=== PATIENT | female | born 1980 | race African-American/Black ===

== ENCOUNTER 2018-01-21 13:59 | Observation (INO) | payer OTHER ==
--- NOTE | 2018-01-21 14:20 | PDOC ---
History of Present Illness - General Chief Complaint: Injury Stated Complaint: INJURY Time Seen by Provider: 01/21/18 14:07 - History of Present Illness Initial Comments: 01/21/18 14:17 Ms. Spence is a 37 yo female w/ no pmh BIBA after a "wet ceiling tile" fell on her head. She reports that she was sitting watching tv when a wet tile fell from the ceiling and struck her. She reports that her head hurts where she was struck. The patient denies chest pain, shortness of breath, and dizziness. Denies fever , chills, nausea, vomit, diarrhea and constipation. Denies dysuria, frequency, urgency and hematuria. Allergies: NKDA Past History - Past Medical History Allergies/Adverse Reactions: Allergies Allergy/AdvReac Type Severity Reaction Status Date / Time No Known Drug Allergies Allergy Verified 10/29/16 11:30 Home Medications: Ambulatory Orders NK [No Known Home Medication] 01/21/18 Anemia: No Asthma: No Cancer: No Cardiac Disorders: No CVA: No COPD: No CHF: No Dementia: No Diabetes: No GI Disorders: Yes (hernia) Disorders: No HTN: No Hypercholesterolemia: No Liver Disease: No Seizures: No Thyroid Disease: No - Surgical History Abdominal Surgery: No Appendectomy: No Cardiac Surgery: No Cholecystectomy: No Lung Surgery: No Neurologic Surgery: No Orthopedic Surgery: Yes (ARTHOSCOPY LEFT KNEE 2006) - Immunization History Immunization Up to Date: Yes - Suicide/Smoking/Psychosocial Hx Smoking History: Former smoker Have you smoked in the past 12 months: No Number of Cigarettes Smoked Daily: 0.5 'Breaking Loose' booklet given: 06/25/15 Hx Alcohol Use: Yes (occasional) Drug/Substance Use Hx: No Substance Use Type: Alcohol Hx Substance Use Treatment: No Review of Systems - Review of Systems Comments:: 01/21/18 14:20 GENERAL/CONSTITUTIONAL: No fever or chills. No weakness. HEAD, EYES, EARS, NOSE AND THROAT: No change in vision. No ear pain or discharge. No sore throat. CARDIOVASCULAR: No chest pain or shortness of breath RESPIRATORY: No cough, wheezing, or hemoptysis. GASTROINTESTINAL: No nausea, vomiting, diarrhea or constipation. GENITOURINARY: No dysuria, frequency, or change in urination. MUSCULOSKELETAL: No joint or muscle swelling or pain. No neck or back pain. SKIN: No rash NEUROLOGIC: +Headache at impact site. No vertigo, loss of consciousness, or change in strength/sensation. ENDOCRINE: No increased thirst. No abnormal weight change HEMATOLOGIC/LYMPHATIC: No anemia, easy bleeding, or history of blood clots. ALLERGIC/IMMUNOLOGIC: No hives or skin allergy. *Physical Exam - Physical Exam Comments: 01/21/18 14:20 GENERAL: Awake, alert, and fully oriented, in no acute distress HEAD: No signs of trauma, normocephalic, atraumatic EYES: PERRLA, EOMI, sclera anicteric, conjunctiva clear ENT: Auricles normal inspection, hearing grossly normal, nares patent, oropharynx clear without exudates. Moist mucosa NECK: Normal ROM, supple, no lymphadenopathy, JVD, or masses LUNGS: No distress, speaks full sentences, clear to auscultation bilaterally HEART: Regular rate and rhythm, normal S1 and S2, no murmurs, rubs or gallops, peripheral pulses normal and equal bilaterally. ABDOMEN: Soft, nontender, normoactive bowel sounds. No guarding, no rebound. No masses EXTREMITIES: Normal inspection, Normal range of motion, no edema. No clubbing or cyanosis. NEUROLOGICAL: +Patient reporting significant pain to palpation of cervical, lumbar, and spinal areas. Cranial nerves II through XII grossly intact. Normal speech, normal gait, no focal sensorimotor deficits SKIN: Warm, Dry, normal turgor, no rashes or lesions noted. ED Treatment Course - LABORATORY CBC & Chemistry Diagram: 01/21/18 14:21 01/21/18 14:21 - RADIOLOGY Radiology Studies Ordered: Category Date Time Status CERVICAL SPINE CT W/O CONTR [CT] Stat CT Scan 01/21/18 14:[address] WITHOUT CONTRAST [CT] Stat CT Scan 01/21/18 14:12 Ordered Medical Decision Making - Medical Decision Making 01/21/18 14:40 Ms. Spence is a 37 yo female w/ no pmh who presents after a ceiling tile fell on her. Patient reporting significant pain with palpation of spine in multiple locations on trauma evaluation. Head and C/T/L spine CT's ordered for evaluation. Morphine 2mg given for pain control. 01/21/18 16:17 Patient Head, T-spine, L-spine CT's negative for acute process. Patient still reporting significant pain. Morphine 4mg given for further pain control. 01/21/18 17:05 CT C-spine negative for acute process. Paging inpatient for admission. 01/21/18 17:09 Patient admitted for observation. 01/21/18 17:20 Neurology consulted for further inpatient evaluation. 01/21/18 18:[address] Khan who will see patient inpatient for further evaluation. *DC/Admit/Observation/Transfer Diagnosis at time of Disposition: Head trauma Qualifiers: Encounter type: initial encounter Qualified Code(s): S09.90XA - Unspecified injury of head, initial encounter - Discharge Dispostion Admit: Yes - Referrals Referrals: Sri Waldrop NP [Primary Care Provider] - - Patient Instructions - Post Discharge Activity
[2018-01-21] MEDS ORDERED: morphine CARPU-JECT 2 MG/1 ML DISP.SYRIN IVPUSH ONE (14:32)
[2018-01-21] MEDS ORDERED: morphine SULFATE 4 MG/ML VIAL ONE ×2 (14:33→16:16)
[2018-01-21 14:47] LABS: BASO % 0.4 % (0-2.0); EOS % 0.8 % (0-4.5); HEMATOCRIT 40.3 % (32.4-45.2); HEMOGLOBIN 13.3 GM/dL (10.7-15.3); LYMPH % 46.8 % (8-40); MCH 30.8 pg (25.7-33.7); MCHC 33.1 g/dl (32.0-36.0); MEAN PLT VOLUME 9.7 fl (7.5-11.1); MONO % 10.6 % (3.8-10.2); NEUT % 41.4 % (42.8-82.8); PLATELET COUNT 149 K/MM3 (134-434); RBC 4.34 M/mm3 (3.60-5.2); RDW 14.2 % (11.6-15.6); WHITE BLOOD COUNT 5.6 K/mm3 (4.0-10.0)
[2018-01-21 15:11] LABS: ALBUMIN 3.8 g/dl (3.4-5.0); ALK PHOS 92 U/L (45-117); ANION GAP 4 (8-16); BILIRUBIN,TOTAL 0.5 mg/dL (0.2-1.0); BLOOD UREA NITROGEN 11 mg/dL (7-18); CALCIUM 8.6 mg/dL (8.5-10.1); CHLORIDE 109 mmol/L (98-107); CO2 27 mmol/L (21-32); CREATININE 0.8 mg/dL (0.55-1.02); GLUCOSE,RANDOM 89 mg/dL (74-106); POTASSIUM 4.6 mmol/L (3.5-5.1); SGOT/AST 19 U/L (15-37); SGPT/ALT 18 U/L (12-78); SODIUM 140 mmol/L (136-145); TOT PROT 7.5 g/dl (6.4-8.2)
--- NOTE | 2018-01-21 15:37 | PDOC ---
Attending Attestation - Resident Resident Name: Edilberto German - ED Attending Attestation I have performed the following: I have examined & evaluated the patient, The case was reviewed & discussed with the resident, I agree w/resident's findings & plan, Exceptions are as noted - HPI HPI: 01/21/18 15:34 37 yo F c/ hx of obesity p/w trauma. The patient was seen immediately by the ED team, including me and Dr. German (resident). 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 With all of the rain, the above tiles in her ceiling were wet. It had collapsed on the patient and landed on the back of her head and neck. The patient is complaining of thoracic and lumbar pain, in addition to headache. Denies LOC. Does report feeling slow and unwell. Denies chest pain. Does not take anticoagulants. A: speaking without obstruction B: breath sounds equal and clear C: 2+ radial pulse D: CN II-XII intact. Moving all extremities with equal strength. E: No lacerations, tears or abrasions - Physicial Exam PE: 01/21/18 15:37 GENERAL: Awake, alert, and fully oriented, but appears lethargic, and answers questions slowly HEAD: No signs of trauma EYES: PERRLA, EOMI, sclera anicteric, conjunctiva clear ENT: Auricles normal inspection, hearing grossly normal, nares patent. C-spine with no stepoffs. Subjective tenderness to palpation. NECK: Normal ROM, supple LUNGS: Breath sounds equal, clear to auscultation bilaterally. No wheezes, and no crackles HEART: Regular rate and rhythm, normal S1 and S2, no murmurs, rubs or gallops ABDOMEN: Soft, nontender. No guarding, no rebound. No masses BACK: TTP thoracic and lumbar spine. No step offs noted. EXTREMITIES: Normal range of motion, no edema. No clubbing or cyanosis. No cords, erythema, or tenderness NEUROLOGICAL: Cranial nerves II through XII intact. Slow speech, SKIN: Warm, Dry, normal turgor, no rashes or lesions noted. - Medical Decision Making 01/21/18 15:39 Vital Signs Temp Pulse Resp BP Pulse Ox 98.3 F 71 18 156/94 100 01/21/18 14:19 01/21/18 14:19 01/21/18 14:19 01/21/18 14:19 01/21/18 14:19 Pt is a trauma patient. Must rule out intracranial hemorrhage, spinal fracture (c-spine, thoracic, lumbar) Pain control. Head CT, spine CTs labs
[2018-01-21] MEDS ORDERED: morphine CARPU-JECT 4 MG/1 ML DISP.SYRIN IVPUSH ONE (16:13)
--- NOTE | 2018-01-21 20:08 | CON.NEURO ---
Consult Consult Specialty:: neurology Referred by:: ER Reason for Consultation:: Head/Neck trauma - History of Present Illness Chief Complaint: HIt on head by ceiling tile History of Present Illness: Patient had come home from work, and was sitting and watching television in her chair. It was raining and the ceiling tiles were getting soaking wet. As she bent over to grab something, some tiles fell on her hitting her in the back of her head neck and shoulders. She did not lose consciousness but was briefly dazed. SHe immediately tried to call her super, couldn't reach him, then thought to call her mother but realized that she wouldn't be able to reach her either and so decided to call 911, the point being that she was thinking clearly and strategically throughout. She had no weakness or numbness, but her head and neck ached a bit. - History Source History Provided By: Patient, Medical Record Limitations to Obtaining History: No Limitations - Past Medical History ...LMP: 06/05/15 - Alcohol/Substance Use Hx Alcohol Use: Yes (occasional) - Smoking History Smoking history: Former smoker Have you smoked in the past 12 months: No Aproximately how many cigarettes per day: 0.5 Home Medications - Allergies Allergies/Adverse Reactions: Allergies Allergy/AdvReac Type Severity Reaction Status Date / Time No Known Drug Allergies Allergy Verified 10/29/16 11:30 - Home Medications Home Medications: Ambulatory Orders NK [No Known Home Medication] 01/21/18 Physical Exam-Neuro Vital Signs: Vital Signs Temperature 98.3 F 01/21/18 14:19 Pulse Rate 60 01/21/18 18:53 Respiratory Rate 18 01/21/18 18:53 Blood Pressure 130/82 01/21/18 18:53 O2 Sat by Pulse Oximetry (%) 100 01/21/18 18:53 Constitutional: Yes: Well Nourished Neck: Yes: Supple Labs: CBC, BMP 01/21/18 14:21 01/21/18 14:21 - Neuro Exam Level Of Consciousness: Yes: Alert, Oriented to Person, Oriented to Place, Oriented to Time Eyes: Yes: MARY Speech: WNL Cranial Nerves II-XII Intact: Yes DTR's: 2+ Left Bicep, 2+ Right Bicep, 2+ Left Tricep, 2+ Right Tricep, 2+ Left Brachioradialis, 2+ Right Brachioradialis, 2+ Left Achilles, 2+ Right Achilles Babinski: Absent Response to light touch: Normal Motor Strength: 5/5: Left Arm, Right Arm, Left Leg, Right Leg Gait: Deferred Imaging - Results Cat Scan: Report Reviewed, Image Reviewed (ct head and c spine negative, thought there is some straightening of the normal curvature of the c spine) Problem List - Problems (1) Concussion Code(s): S06.0X9A - CONCUSSION W LOSS OF CONSCIOUSNESS OF UNSP DURATION, INIT Qualifiers: Qualified Code(s): S06.0X0A - Concussion without loss of consciousness, initial encounter Assessment/Plan patient briefly dazed though quickly got her wits about her. If not feeling better tomorrow would advise on modified activity until she is feeling better.
[2018-01-22 00:27] VITALS: BMI 39.5
[2018-01-22] MEDS: ACETAMINOPHEN 325 MG TABLET (FP) PO PRN ×2 (01:16→10:03)
--- NOTE | 2018-01-22 02:18 | HOSP ---
Subjective - Review of Symptoms Events since last encounter: Hospitalist Encounter Called by RN to evaluate a patient of Dr. Gaspar'radha for bradycardia RN checked pulse 52-55 Subjective: Arrived to bedside, patient is asleep but arousable reports WATERMAN is improving since being medicated. Denies lightheadedness and dizziness at present. See PE 37 y/o woman PMHx of Bronchitis. Placed in Observation for Head Injury r/o Concussion Plan: EKG stat Physical Examination Vital Signs: Vital Signs Temperature 98.2 F 01/22/18 00:21 Pulse Rate 55 L 01/22/18 01:19 Respiratory Rate 18 01/22/18 01:19 Blood Pressure 121/65 01/22/18 00:21 O2 Sat by Pulse Oximetry (%) 95 01/21/18 23:47 Constitutional: Yes: Well Nourished, No Distress, Calm Eyes: Yes: WNL, Conjunctiva Clear, EOM Intact, PERRL HENT: Yes: WNL, Atraumatic, Normocephalic Neck: Yes: WNL, Supple, Trachea Midline Cardiovascular: Yes: Bradycardia, S1, S2 Respiratory: Yes: WNL, Regular, CTA Bilaterally Gastrointestinal: Yes: WNL, Normal Bowel Sounds, Soft, Abdomen, Obese Peripheral Pulses WNL: Yes Neurological: Yes: WNL, Alert, Oriented, Cran Nerves II-XII Intact ...Motor Strength: WNL Psychiatric: Yes: WNL, Alert, Oriented Labs: CBC, BMP 01/21/18 14:21 01/21/18 14:21 Hospitalist Encounter Outcome: EKG reviewed- sinus bradycardia with sinus arrhythmia. 48bpm, WI 168, QT/QTc 462 /412 Recommendations/Interventions: Suggest transfer to Obs Tele when bed available for closer monitoring Recommend Cardiac consult
[2018-01-22] MEDS ORDERED: PT OWN MED DRAWER 7, Y5N ONE (09:46)
--- NOTE | 2018-01-22 09:54 | PN ---
Progress Note, Physician Chief Complaint: head and neck trauma History of Present Illness: Patient had come home from work, and was sitting and watching television in her chair. It was raining and the ceiling tiles were getting soaking wet. As she bent over to grab something, some tiles fell on her hitting her in the back of her head neck and shoulders. She did not lose consciousness but was briefly dazed. SHe immediately tried to call her super, couldn't reach him, then thought to call her mother but realized that she wouldn't be able to reach her either and so decided to call 911, the point being that she was thinking clearly and strategically throughout. She had no weakness or numbness, but her head and neck ached a bit. This am complains of headache since last night. Asked me to close shade as I came in. Noise also bothering her. No nausea or vomiting. She had one prior episode of head trauma at work in August 2017 resulting in ear surgery and briefly had migrainous headaches after that but they disappeared and lately she hadn't had headaches until last night. She is now also noted to be bradycardic. - Current Medication List Current Medications: Active Medications Acetaminophen (Tylenol -) 650 mg PO Q6H PRN PRN Reason: PAIN LEVEL 1 - 3 Last Admin: 01/22/18 01:16 Dose: 650 mg Morphine Sulfate (Morphine Sulfate) 2 mg IVPUSH Q4H PRN PRN Reason: PAIN LEVEL 4 - 6 - Objective Vital Signs: Vital Signs Temperature 97.9 F 01/22/18 06:40 Pulse Rate 52 L 01/22/18 06:40 Respiratory Rate 18 01/22/18 06:40 Blood Pressure 128/62 01/22/18 06:40 O2 Sat by Pulse Oximetry (%) 95 01/21/18 23:47 Neurological: Yes: Alert, Oriented, Cran Nerves II-XII Intact, Other (Motor 5/5 , DTR's 2/4 with flexor plantar reflexes. No sensory loss.) Labs: CBC, BMP 01/21/18 14:21 01/21/18 14:21 Problem List - Problems (1) Concussion Code(s): S06.0X9A - CONCUSSION W LOSS OF CONSCIOUSNESS OF UNSP DURATION, INIT Qualifiers: Qualified Code(s): S06.0X0A - Concussion without loss of consciousness, initial encounter (2) Migraine Code(s): G43.909 - MIGRAINE, UNSP, NOT INTRACTABLE, WITHOUT STATUS MIGRAINOSUS Qualifiers: Status migrainosus presence: without status migrainosus Intractability: not intractable Assessment/Plan patient briefly dazed though quickly got her wits about her. advised limiting though not avoiding electronics, reading etc. Now with post- traumatic migraine. Will most likely benefit from migraine prophylaxis, but before chosing agent, I would like to see what is going on with bradycardia. I gave her my card for f/u.
[2018-01-22] MEDS: morphine SULFATE 4 MG/ML VIAL IVPUSH PRN ×2 (10:59→21:39)
--- NOTE | 2018-01-22 12:39 | HP ---
Admitting History and Physical - Primary Care Physician PCP: Ilana Gaspar - Admission Chief Complaint: tile fell on head and neck - Past Medical History ...LMP: 06/05/15 - Smoking History Smoking history: Former smoker Have you smoked in the past 12 months: No Aproximately how many cigarettes per day: 0.5 - Alcohol/Substance Use Hx Alcohol Use: Yes (occasional) Home Medications - Allergies Allergies/Adverse Reactions: Allergies Allergy/AdvReac Type Severity Reaction Status Date / Time No Known Drug Allergies Allergy Verified 10/29/16 11:30 - Home Medications Home Medications: Ambulatory Orders NK [No Known Home Medication] 01/21/18 Physical Examination Vital Signs: Vital Signs Temperature 98.0 F 01/22/18 09:00 Pulse Rate 54 L 01/22/18 09:00 Respiratory Rate 18 01/22/18 09:00 Blood Pressure 147/81 01/22/18 09:00 O2 Sat by Pulse Oximetry (%) 99 01/22/18 09:00 Labs: CBC, BMP 01/21/18 14:21 01/21/18 14:21 Imaging - Results Cat Scan: Report Reviewed Problem List - Problems (1) Concussion Assessment/Plan: will keep her for observation for any change in mental status if stable can be dc later today neuro onboard Code(s): S06.0X9A - CONCUSSION W LOSS OF CONSCIOUSNESS OF UNSP DURATION, INIT (2) Head trauma Code(s): S09.90XA - UNSPECIFIED INJURY OF HEAD, INITIAL ENCOUNTER Qualifiers: Encounter type: initial encounter Qualified Code(s): S09.90XA - Unspecified injury of head, initial encounter (3) Bradycardia Assessment/Plan: monitor if needed will get cardiology invvolved Code(s): R00.1 - BRADYCARDIA, UNSPECIFIED (4) Migraine Assessment/Plan: could be post traumatic prn pain meds Code(s): G43.909 - MIGRAINE, UNSP, NOT INTRACTABLE, WITHOUT STATUS MIGRAINOSUS Qualifiers: Status migrainosus presence: without status migrainosus Intractability: not intractable Assessment/Plan Laboratory Tests 01/21/18 01/21/18 01/21/18 14:21 14:21 14:21 WBC 5.6 RBC 4.34 Hgb 13.3 Hct 40.3 MCV 93.0 MCH 30.8 MCHC 33.1 RDW 14.2 Plt Count 149 MPV 9.7 Neutrophils % 41.4 L D Lymphocytes % 46.8 H D Monocytes % 10.6 H Eosinophils % 0.8 Basophils % 0.4 Sodium 140 Potassium 4.6 Chloride 109 H Carbon Dioxide 27 Anion Gap 4 L BUN 11 Creatinine 0.8 Creat Clearance w eGFR > 60 Random Glucose 89 Calcium 8.6 Total Bilirubin 0.5 D AST 19 ALT 18 Alkaline Phosphatase 92 Total Protein 7.5 Albumin 3.8 Serum , Qual Negative Active Medications Generic Name Dose Route Start Last Admin Trade Name Freq PRN Reason Stop Dose Admin Acetaminophen 650 mg 01/22/18 01:03 01/22/18 10:03 Tylenol - PO 650 mg Q6H PRN Administration PAIN LEVEL 1 - 3 Morphine Sulfate 2 mg 01/21/18 23:33 01/22/18 10:59 Morphine Sulfate IVPUSH 2 mg Q4H PRN Administration PAIN LEVEL 4 - 6
[2018-01-22 13:37] LABS: BASO % 0.3 % (0-2.0); EOS % 1.4 % (0-4.5); HEMATOCRIT 39.7 % (32.4-45.2); HEMOGLOBIN 12.9 GM/dL (10.7-15.3); LYMPH % 53.4 % (8-40); MCH 30.7 pg (25.7-33.7); MCHC 32.6 g/dl (32.0-36.0); MEAN PLT VOLUME 9.8 fl (7.5-11.1); MONO % 8.5 % (3.8-10.2); NEUT % 36.4 % (42.8-82.8); PLATELET COUNT 158 K/MM3 (134-434); RBC 4.22 M/mm3 (3.60-5.2); WHITE BLOOD COUNT 5.1 K/mm3 (4.0-10.0)
[2018-01-22 13:55] LABS: ALBUMIN 3.6 g/dl (3.4-5.0); ALK PHOS 85 U/L (45-117); ANION GAP 8 (8-16); BILIRUBIN,TOTAL 0.9 mg/dL (0.2-1.0); BLOOD UREA NITROGEN 13 mg/dL (7-18); CALCIUM 8.9 mg/dL (8.5-10.1); CHLORIDE 106 mmol/L (98-107); CO2 25 mmol/L (21-32); CREATININE 0.7 mg/dL (0.55-1.02); GLUCOSE,RANDOM 115 mg/dL (74-106); POTASSIUM 3.9 mmol/L (3.5-5.1); SGOT/AST 18 U/L (15-37); SGPT/ALT 20 U/L (12-78); SODIUM 139 mmol/L (136-145)
--- NOTE | 2018-01-22 16:50 | EKG ---
Test Reason : Blood Pressure : / mmHG Vent. Rate : 048 BPM Atrial Rate : 048 BPM P-R Int : 168 ms QRS Dur : 080 ms QT Int : 462 ms P-R-T Axes : 026 020 007 degrees QTc Int : 412 ms SINUS BRADYCARDIA WITH SINUS ARRHYTHMIA OTHERWISE NORMAL ECG WHEN COMPARED WITH ECG OF 14-FEB-2007 16:28, NO SIGNIFICANT CHANGE WAS FOUND Confirmed by MD Angeles, Harley ([id number]) on 01/22/2018 4:49:55 PM Referred By: Confirmed By:Harley Reynoso MD
--- NOTE | 2018-01-23 10:15 | CON.CARD ---
Consult Consult Specialty:: Cardiology Referred by:: Ilana Gaspar MD Reason for Consultation:: Bradycardia - History of Present Illness Chief Complaint: Post-head trauma History of Present Illness: Patient admitted for closed head trauma after tiles fell on her hitting her in the back of her head neck and shoulders. She did not lose consciousness but was briefly dazed. SHe immediately tried to call her super, couldn't reach him , then thought to call her mother but realized that she wouldn't be able to reach her either and so decided to call 911, the point being that she was thinking clearly and strategically throughout. She had no weakness or numbness , but her head and neck ached a bit. Found to have asymptomatic bradycardia 50- 60s. - History Source History Provided By: Patient Limitations to Obtaining History: No Limitations - Past Medical History ...LMP: 06/05/15 - Alcohol/Substance Use Hx Alcohol Use: Yes (occasional) - Smoking History Smoking history: Former smoker Have you smoked in the past 12 months: No Aproximately how many cigarettes per day: 0.5 Home Medications - Allergies Allergies/Adverse Reactions: Allergies Allergy/AdvReac Type Severity Reaction Status Date / Time No Known Drug Allergies Allergy Verified 10/29/16 11:30 - Home Medications Home Medications: Ambulatory Orders NK [No Known Home Medication] 01/21/18 Review of Systems - Review of Systems Neurological: reports: Headache Vital Signs: Vital Signs Temperature 99.8 F H 01/23/18 09:00 Pulse Rate 56 L 01/23/18 09:00 Respiratory Rate 18 01/23/18 09:00 Blood Pressure 132/72 01/23/18 09:00 O2 Sat by Pulse Oximetry (%) 99 01/23/18 08:46 Constitutional: Yes: No Distress, Calm Neck: Yes: Supple Respiratory: Yes: Regular, CTA Bilaterally Gastrointestinal: Yes: Normal Bowel Sounds, Soft Cardiovascular: Yes: Bradycardia JVD: No Carotid Bruit: No Heart Sounds: Yes: S1, S2 Edema: No - Other Data Labs, Other Data: CBC, BMP 01/22/18 13:00 01/22/18 13:00 SB @ 48 Imaging - Results Cat Scan: Report Reviewed (HCT: Negative for bleed) Problem List - Problems (1) Bradycardia Code(s): R00.1 - BRADYCARDIA, UNSPECIFIED (2) Concussion Code(s): S06.0X9A - CONCUSSION W LOSS OF CONSCIOUSNESS OF UNSP DURATION, INIT Qualifiers: Encounter type: subsequent encounter (3) Migraine Code(s): G43.909 - MIGRAINE, UNSP, NOT INTRACTABLE, WITHOUT STATUS MIGRAINOSUS Qualifiers: Status migrainosus presence: without status migrainosus Intractability: not intractable Assessment/Plan 1. Sinus bradycardia asymptomatic 2. Post-concussion syndrome 3. Migraine WATERMAN P:1. Ambulate patient to document chronotropic competence, otherwise no treatment required for asymptomatic sinus bradycardia 2. Analgesia as needed 3. Thank you for consultative opportunity
[2018-01-23] MEDS ORDERED: IBUPROFEN 600 MG TABLET (FP) PO ONE (12:15)
--- NOTE | 2018-01-23 18:58 | PN ---
Progress Note (short form) - Note Progress Note: Suggest: Gabapentin 300mg hs x 5 days than 300mg bid Meloxicam 7.5mg bid prn F/U-with , she will call for appt. Thank you, Daphne Lee MD.
--- NOTE | 2018-01-23 19:27 | DS ---
Physical Examination Vital Signs: Vital Signs Temperature 98.3 F 01/23/18 17:00 Pulse Rate 50 L 01/23/18 17:00 Respiratory Rate 20 01/23/18 17:00 Blood Pressure 120/69 01/23/18 17:00 O2 Sat by Pulse Oximetry (%) 99 01/23/18 08:46 Constitutional: Yes: No Distress HENT: Yes: Atraumatic Neck: Yes: Supple Cardiovascular: Yes: Regular Rate and Rhythm Respiratory: Yes: CTA Bilaterally Gastrointestinal: Yes: Normal Bowel Sounds Extremities: Yes: WNL Edema: No Neurological: Yes: Alert, Oriented Labs: CBC, BMP 01/22/18 13:00 01/22/18 13:00 Discharge Summary Reason For Visit: TRAUMATIC INURY OF HEAD Current Active Problems Bradycardia (Acute) Concussion (Acute) Head trauma (Acute) Migraine (Acute) - Instructions Referrals: Sri Waldrop NP [Primary Care Provider] - - Home Medications Comprehensive Discharge Medication List: Ambulatory Orders Gabapentin [Neurontin -] 300 mg PO BID #60 capsule 01/23/18 Gabapentin [Neurontin -] 300 mg PO HS #10 capsule 01/23/18 ellis
[2018-01-23] MEDS ORDERED: GABAPENTIN 300 MG CAPSULE (FP) PO SCH (22:00)
[2018-01-23] MEDS ORDERED: MELOXICAM 7.5 MG TABLET PO SCH (22:00)
[2018-01-24 13:08] VITALS: BP 121/65; PULSE 50; TEMP 98.4
[2018-01-28] MEDS ORDERED: GABAPENTIN 300 MG CAPSULE (FP) PO SCH (10:00)
== END 2018-01-24 09:53 | disposition home or self-care (01) ==
LOC: JER 13:59 → JERBED 17:10 → J7W 01-22 00:14 → J4W 01-22 20:35
PROVIDERS: ADMIT Internal Medicine; ATTEND Internal Medicine
PROC: 3E033NZ Introduction of Analgesics, Hypnotics, Sedatives into Peripheral Vein, Percutaneous Approach (ICD-10-PCS; principal; 2018-01-21)
DX: S06.0X9A Concussion with loss of consciousness of unspecified duration, initial encounter (principal); G43.909 Migraine, unspecified, not intractable, without status migrainosus; R00.1 Bradycardia, unspecified; Z87.891 Personal history of nicotine dependence; W20.8XXA Other cause of strike by thrown, projected or falling object, initial encounter; Y93.89 Activity, other specified; Y92.008 Other place in unspecified non-institutional (private) residence as the place of occurrence of the external cause
CPT/HCPCS: 36415; 70450-TC; 72125-TC; 72128-TC; 72131-TC; 80053; 84703; 85025; 93005; 93010; 93306-TC; 99282-25; G0378

== ENCOUNTER 2018-02-18 18:05 | Emergency (ER) | payer OTHER ==
[2018-02-18] MEDS ORDERED: IBUPROFEN 600 MG TABLET (FP) PO ONE ×2 (18:08→18:22)
--- NOTE | 2018-02-18 18:08 | PDOC ---
History of Present Illness - General History Source: Patient Exam Limitations: No Limitations <Sarah Beth Lazar - Last Filed: 02/18/18 18:17> - General History Source: Patient, Old Records Exam Limitations: No Limitations - History of Present Illness Initial Comments: 02/18/18 18:30 The patient is a 37 year old female with a past medical history of chronic back pain, left knee surgery status post ACL and meniscus tear in 2006 who presents to the emergency department with right knee pain since yesterday. She reports that last night she was late for the bus and banged her right knee against a fire hydrant while running to catch the bus. She describes her pain as 8/10 in severity, concentrated medially and superiorly to her right patella, and worse when extending or flexing her leg at the knee. The patient reports taking a muscle relaxant (she had been prescribed for recent back pain) but denies any improvement in right knee pain. She denies any loss of consciousness, chest pain , or shortness of breath. <Mauricio Rodriguez - Last Filed: 02/18/18 19:20> <Shawna Jin - Last Filed: 02/18/18 19:22> - General Chief Complaint: Injury Stated Complaint: RT KNEE PAIN Time Seen by Provider: 02/18/18 18:08 Past History - Past Medical History Anemia: No Asthma: No Cancer: No Cardiac Disorders: No CVA: No COPD: No CHF: No Dementia: No Diabetes: No GI Disorders: Yes (hernia) Disorders: No HTN: No Hypercholesterolemia: No Liver Disease: No Seizures: No Thyroid Disease: No - Surgical History Abdominal Surgery: No Appendectomy: No Cardiac Surgery: No Cholecystectomy: No Lung Surgery: No Neurologic Surgery: No Orthopedic Surgery: Yes (ARTHOSCOPY LEFT KNEE 2006) - Immunization History Immunization Up to Date: Yes - Suicide/Smoking/Psychosocial Hx Smoking History: Former smoker Have you smoked in the past 12 months: No Number of Cigarettes Smoked Daily: 0.5 'Breaking Loose' booklet given: 06/25/15 Hx Alcohol Use: Yes (occasional) Drug/Substance Use Hx: No Substance Use Type: Alcohol Hx Substance Use Treatment: No <Sarah Beth Lazar - Last Filed: 02/18/18 18:17> <Mauricio Rodriguez - Last Filed: 02/18/18 19:20> <Shawna Jin - Last Filed: 02/18/18 19:22> - Past Medical History Allergies/Adverse Reactions: Allergies Allergy/AdvReac Type Severity Reaction Status Date / Time No Known Drug Allergies Allergy Verified 02/18/18 18:06 Home Medications: Ambulatory Orders NK [No Known Home Medication] 02/18/18 Review of Systems - Review of Systems Able to Perform ROS?: Yes Comments:: 02/18/18 18:30 GENERAL: The patient is in no acute distress. HEAD: Normal with no signs of trauma. EYES: PERRLA, EOMI, sclera anicteric, conjunctiva clear. ENT: Ears normal, nares patent, oropharynx clear without exudates. Moist mucous membranes. NECK: Normal range of motion, supple without lymphadenopathy, JVD, or masses. LUNGS: Breath sounds equal, clear to auscultation bilaterally. No wheezes, and no crackles. HEART:Regular rate and rhythm, normal S1 and S2 without murmur, rub or gallop. ABDOMEN: Soft, nontender, normoactive bowel sounds. No guarding, no rebound. EXTREMITIES: Normal range of motion, no edema. No clubbing or cyanosis. No erythema, or tenderness. NEUROLOGICAL: Cranial nerves II through XII grossly intact. Normal speech. No focal neurological deficits. MUSCULOSKELETAL: (+) Minimal flexion of the knee anterior knee tenderness overlying the patella, stable to anterior and posterior draw, stable to varus and valgus test. Back nontender to palpation, no CVA tenderness SKIN: Warm, Dry, normal turgor, no rashes or lesions noted. <Mauricio Rodriguez - Last Filed: 02/18/18 19:20> *Physical Exam - Vital Signs Last Vital Signs Temp Pulse Resp BP Pulse Ox 98.1 F 78 18 119/80 100 02/18/18 18:05 02/18/18 18:05 02/18/18 18:05 02/18/18 18:05 02/18/18 18:05 - Physical Exam Comments: 02/18/18 18:30 GENERAL/CONSTITUTIONAL: No: fever, chills, weakness, loss of appetite. HEAD, EYES, EARS, NOSE AND THROAT: No: change in vision, ear pain, discharge, sore throat, throat swelling. CARDIOVASCULAR: No: chest pain, lightheadedness, palpitations, syncope RESPIRATORY: No: cough, shortness of breath, wheezing, hemoptysis, stridor. GASTROINTESTINAL: No: nausea, vomiting, abdominal cramping, diarrhea, rectal bleeding, constipation. GENITOURINARY: No: dysuria, hematuria, frequency, urgency, flank pain. MUSCULOSKELETAL: (+) Right knee pain No: back pain, neck pain, muscle swelling or pain SKIN: No: lesions, pallor, rash or easy bruising. NEUROLOGIC: No: headache, vertigo, paresthesias, weakness ENDOCRINE: No: unexplained weight gain or loss HEMATOLOGIC/LYMPHATIC: No: anemia, easy bleeding, swelling nodes <Mauricio Rodriguez - Last Filed: 02/18/18 19:20> - Vital Signs Last Vital Signs Temp Pulse Resp BP Pulse Ox 98.1 F 78 18 119/80 100 02/18/18 18:05 02/18/18 18:05 02/18/18 18:05 02/18/18 18:05 02/18/18 18:05 <Shawna Jin - Last Filed: 02/18/18 19:22> ED Treatment Course - RADIOLOGY Radiograph Interpretation: 02/18/18 19:20 Mona Castaneda [place] Name: TOSHA SPENCE DEPARTMENT OF RADIOLOGY Phys: Sarah Beth Lazar MD : 1980 Age: 37 Sex: F [facility] Acct: [id number] Loc: [address] Exam Date: 02/18/18 Status: [facility] [place] [address] Unit Number: [id number] EXAM#: TYPE/EXAM: RESULT: [id number] RAD/KNEE 3 POS-RIGHT HISTORY PROVIDED: Knee injury AP, sunrise and lateral projections of the right knee reveals no evidence of fracture, dislocation or acute bone or joint abnormalities. Mild degenerative changes are present. IMPRESSION: Mild degenerative arthritis with no fracture or acute bone or joint abnormalities. Reported By: Nathanael Healy MD 02/18/181913 Sarah Beth Lazar Technologist: Caryl Hdz Transcribed Date/Time: 02/18/181913 Wastewater Design Engineer: Nathanael Healy Printed Date/Time: By: Signed by: Nathanael Healy Signed on: 18-Feb-2018 19:16 - Medications Given in the ED: ED Medications Discontinued Medications Generic Name Dose Route Start Last Admin Trade Name Freq PRN Reason Stop Dose Admin Ibuprofen 600 mg 02/18/18 18:08 02/18/18 18:26 Motrin - PO 02/18/18 18:09 Not Given ONCE ONE <Mauricio Rodriguez - Last Filed: 02/18/18 19:20> - ADDITIONAL ORDERS Additional order review: Laboratory Results 02/18/18 18:15 Urine HCG, Qual Negative - Medications Given in the ED: ED Medications Discontinued Medications Generic Name Dose Route Start Last Admin Trade Name Freq PRN Reason Stop Dose Admin Ibuprofen 600 mg 02/18/18 18:08 02/18/18 18:26 Motrin - PO 02/18/18 18:09 Not Given ONCE ONE <Shawna Jin - Last Filed: 02/18/18 19:22> Medical Decision Making - Medical Decision Making 02/18/18 18:17 Mr. Spence is a 37-year-old female who presents ambulatory to the emergency department with a complaint of right knee pain. Patient states that yesterday, she was a belted to take a bus, accidentally banged her right knee on a fire hydrant. No other trauma. Patient has been ambulatory since then but states that the right knee is very painful. She took a muscle relaxant yesterday, this did not help. She does have a history of chronic back pain and her muscle relaxant also didn' t help her back pain. Patient has pain with ranging her knee-extension, or flexion. On examination: Right knee tendern to palpation overlying the patella Pt has knee in full extension limited flexion due to pain No tenderness overlying the proximal tibia or fibula No tenderness of the distal femur Stable to anterior drawer, posterior drawer No varus or valgus laxity Pain with heel strike DD: Musculoskeletal pain, reactive joint effusion, meniscal tear Will do: Xray Motrin Reassess Pt had operation in the past by Dr Luna Will ask pt to follow up within 1 week Motrin for pain Cheikh wrap 02/18/18 18:23 <Sarah Beth Lazar - Last Filed: 02/18/18 18:17> *DC/Admit/Observation/Transfer - Discharge Dispostion Decision to Admit order: No <Sarah Beth Lazar - Last Filed: 02/18/18 18:17> - Attestations Scribe Attestion: 02/18/18 18:31 Documentation prepared by Mauricio Rodriguez, acting as medical communication specialist for Sarah Beth Lazar MD. <Mauricio Rodriguez - Last Filed: 02/18/18 19:20> - Discharge Dispostion Decision to Admit order: No <Shawna Jin - Last Filed: 02/18/18 19:22> Diagnosis at time of Disposition: Right knee pain Qualifiers: Chronicity: acute Qualified Code(s): M25.561 - Pain in right knee - Discharge Dispostion Disposition: HOME Condition at time of disposition: Stable - Referrals Referrals: Phil Luna MD [Staff Physician] - - Patient Instructions Printed Discharge Instructions: DI for Knee Sprain, DI for Knee Pain Additional Instructions: Ms Spence Thank you for coming in to the ER today Today you were seen for knee pain and the X-ray demonstrated no signs of fracture (broken bone), for that reason it is more likely a sprain based on your symptoms and the appearance and exam findings of your knee. Please be sure to rest, ice and elevate it and to avoid bearing weight until feeling better. You may take motrin every 8 hours as needed for pain. You should not work out aggressively or participate in any sports for at least 1 week or until you are feeling better. Follow up with your primary care physician's office and your Orthopedist. If you develop any new or worsening symptoms, or any fevers that cant be controlled with Tylenol or Motrin go directly to the emergency room. - Post Discharge Activity Forms/Work/School Notes: Back to Work
[2018-02-18 18:17] VITALS: BP 119/80; PULSE 78; TEMP 98.1; BMI 40.3
== END 2018-02-18 19:30 | disposition home or self-care (01) ==
LOC: FER 18:05
DX: M25.561 Pain in right knee (principal); W22.01XA Walked into wall, initial encounter; Y93.89 Activity, other specified; Y92.9 Unspecified place or not applicable
CPT/HCPCS: 73562-TC-RT-FY; 84703; 99283-25

== ENCOUNTER 2018-03-13 13:58 | Emergency (ER) | payer OTHER ==
[2018-03-13 14:03] VITALS: BP 117/73; PULSE 66; TEMP 99.3; BMI 40.3
[2018-03-13 14:19] LABS: PH,URINE 5.5 (4.5-8); URINE BILIRUBIN Negative (NEGATIVE); URINE GLUCOSE (UA) Negative (NEGATIVE); URINE KETONE 1+ (NEGATIVE); URINE LEUK ESTERASE Negative (NEGATIVE); URINE NITRITE Negative (NEGATIVE); URINE PROTEIN Negative (NEGATIVE); URINE UROBILINOGEN 0.2 (0.2-1.0)
[2018-03-13 14:20] LABS: URINE APPEARANCE SL CLOUDY; URINE BLOOD 2+ (NEGATIVE); URINE COLOR AMBER
[2018-03-13 14:23] LABS: HCG,QUALITATIVE URINE Positive
[2018-03-13 14:35] LABS: EPI CELLS MANY /HPF; URINE BACTERIA RARE /hpf (NEGATIVE)
--- NOTE | 2018-03-13 14:42 | PDOC ---
History of Present Illness - General History Source: Patient Exam Limitations: No Limitations - History of Present Illness Initial Comments: 03/13/18 15:30 The patient is a 37 year old female with a significant PMH of chronic back pain , left knee surgery, meniscus tear(2006), and an abdominal hernia who presents to the emergency department with lower abdominal pain for 3 days. The patient reports that she recently took a positive at home test. The patient reports that she has been experiencing associated vaginal spotting throughout the day, nausea and cramping with her lower abdominal pain. She describes her lower abdominal pain as intermittent.The patient reports that her last menstrual cycle was 6 weeks ago.she reports that her periods are usually regular but reports that she has been experiencing stress recently. The patient reports that she has had 2 therapeutic terminations in the past. The patient reports that she has had a decrease in appetite secondary to her lower abdominal pain. She also reports episodes of diarrhea since last week. The patient denies any fever, chills, vomit, constipation or urinary symptoms. She denies any chest pain, shortness of breath, headache and dizziness. The patient denies any other complaints. It is noted that the patient has a family history of NH (Father at age 49) and her mother has arthritis and diabetes. The patient also reports a recent hospitalization 2 months ago for back and head injury. The patient has not been working since then. <Misael Gaming - Last Filed: 03/13/18 15:30> <Ramon Rooney - Last Filed: 03/13/18 16:50> - General Chief Complaint: ,Possible Stated Complaint: pelvic pain, +preg test Time Seen by Provider: 03/13/18 14:25 Past History <Misael Gaming - Last Filed: 03/13/18 15:30> - Past Medical History Anemia: No Asthma: No Cancer: No Cardiac Disorders: No CVA: No COPD: No CHF: No DVT: No Dementia: No Diabetes: No GI Disorders: Yes (hernia) Disorders: No HTN: No Hypercholesterolemia: No Liver Disease: No Seizures: No Thyroid Disease: No - Surgical History Abdominal Surgery: No Appendectomy: No Cardiac Surgery: No Cholecystectomy: No Lung Surgery: No Neurologic Surgery: No Orthopedic Surgery: Yes (ARTHOSCOPY LEFT KNEE 2006) - Reproductive History Is Patient Now?: Yes (+ at home test as per pt) Ectopic : No Therapeutic (s) & number: Yes (2) - Immunization History Immunization Up to Date: Yes - Suicide/Smoking/Psychosocial Hx Smoking History: Former smoker Have you smoked in the past 12 months: No Number of Cigarettes Smoked Daily: 0.5 Information on smoking cessation initiated: No 'Breaking Loose' booklet given: 06/25/15 Hx Alcohol Use: Yes Drug/Substance Use Hx: No Substance Use Type: Alcohol Hx Substance Use Treatment: No <Ramon Rooney - Last Filed: 03/13/18 16:50> - Past Medical History Allergies/Adverse Reactions: Allergies Allergy/AdvReac Type Severity Reaction Status Date / Time No Known Drug Allergies Allergy Verified 02/18/18 18:06 Home Medications: Ambulatory Orders NK [No Known Home Medication] 02/18/18 Review of Systems - Review of Systems Able to Perform ROS?: Yes Comments:: 03/13/18 15:30 CONSTITUTIONAL: (+)loss of appetite Absent: fever, chills, diaphoresis, generalized weakness, malaise. HEENT: Absent: rhinorrhea, nasal congestion, throat pain, throat swelling, difficulty swallowing, mouth swelling, ear pain, eye pain, visual Changes CARDIOVASCULAR: Absent: chest pain, syncope, palpitations, irregular heart rate, lightheadedness , peripheral edema RESPIRATORY: Absent: cough, shortness of breath, dyspnea with exertion, orthopnea, wheezing, stridor, hemoptysis GASTROINTESTINAL:(+)abdominal pain, nausea, diarrhea Absent: abdominal distension, vomiting, constipation, melena, hematochezia GENITOURINARY: (+)vaginal spotting Absent: dysuria, frequency, urgency, hesitancy, hematuria, flank pain, genital pain MUSCULOSKELETAL: Absent: myalgia, arthralgia, joint swelling SKIN: Absent: rash, itching, pallor HEMATOLOGIC/IMMUNOLOGIC: Absent: easy bleeding, easy bruising, lymphadenopathy, frequent infections ENDOCRINE: Absent: unexplained weight gain, unexplained weight loss, heat intolerance, cold intolerance NEUROLOGIC: Absent: headache, focal weakness or paresthesias, dizziness, unsteady gait, seizure, mental status changes, bladder or bowel incontinence PSYCHIATRIC: Absent: anxiety, depression, suicidal or homicidal ideation, hallucinations. <Misael Gaming - Last Filed: 03/13/18 15:30> *Physical Exam - Vital Signs Last Vital Signs Temp Pulse Resp BP Pulse Ox 99.3 F 66 18 117/73 100 03/13/18 13:59 03/13/18 13:59 03/13/18 13:59 03/13/18 13:59 03/13/18 13:59 - Physical Exam Comments: 03/13/18 15:31 GENERAL: Well-appearing, well-nourished. No apparent distress. HEENT: Normocephalic, atraumatic. PERRL, EOM intact. CARDIOVASCULAR: Normal S1, S2. Regular rate and rhythm. PULMONARY: Clear to auscultation bilaterally. ABDOMEN: (+)Mild tenderness to palpation of right lower quadrant Soft, non-distended, non-tender, normal bowel sounds, no guarding, rebound, masses, organomegaly. EXTREMITIES: Normal ROM in all four extremities. No gross deformities. SKIN: Warm, dry. No rash NEUROLOGICAL: No focal neurological deficits. <Misael Gaming - Last Filed: 03/13/18 15:30> - Vital Signs Last Vital Signs Temp Pulse Resp BP Pulse Ox 99.3 F 66 18 117/73 100 03/13/18 13:59 03/13/18 13:59 03/13/18 13:59 03/13/18 13:59 03/13/18 13:59 <Ramon Rooney - Last Filed: 03/13/18 16:50> ED Treatment Course - ADDITIONAL ORDERS Additional order review: Laboratory Results 03/13/18 14:07 Urine Color Jina Urine Appearance Sl cloudy Urine pH 5.5 Ur Specific Tasley 1.025 Urine Protein Negative Urine Glucose (UA) Negative Urine Ketones 1+ H Urine Blood 2+ H Urine Nitrite Negative Urine Bilirubin Negative Urine Urobilinogen 0.2 Ur Leukocyte Esterase Negative Urine RBC 10-15 Urine WBC 3-5 Ur Epithelial Cells Many Urine Bacteria Rare Urine HCG, Qual Positive <Misael Gaming - Last Filed: 03/13/18 15:30> - ADDITIONAL ORDERS Additional order review: Laboratory Results 03/13/18 14:07 Urine Color Jina Urine Appearance Sl cloudy Urine pH 5.5 Ur Specific Tasley 1.025 Urine Protein Negative Urine Glucose (UA) Negative Urine Ketones 1+ H Urine Blood 2+ H Urine Nitrite Negative Urine Bilirubin Negative Urine Urobilinogen 0.2 Ur Leukocyte Esterase Negative Urine RBC 10-15 Urine WBC 3-5 Ur Epithelial Cells Many Urine Bacteria Rare Urine HCG, Qual Positive <Ramon Rooney - Last Filed: 03/13/18 16:50> Medical Decision Making - Medical Decision Making 03/13/18 14:42 37-year-old 2 para 0 with a question of a positive test done at home. Complains of crampy lower abdominal pain and spotting for 2 days. Prior pregnancies were electively terminated. However, she desires this . There is nausea and breast tenderness. But there is also diarrhea which began about a week ago and is subsiding now. First trimester cramping and spotting, possibly impending miscarriage, rule out ectopic. 03/13/18 16:49 Ultrasound shows a 5 week intrauterine , but with some bleeding at the implantation site. Otherwise normal Patient has appointment with RFID STRATEGIST doctor tomorrow and is encouraged to keep that appointment as scheduled. No heavy bleeding now. No significant pain. Return to ER if pain or bleeding worsens. <Ramon Rooney - Last Filed: 03/13/18 16:50> *DC/Admit/Observation/Transfer - Attestations Scribe Attestion: 03/13/18 15:31 Documentation prepared by Misael Gaming, acting as medical physiologist for Ramon Mauricio MD. <Misael Gaming - Last Filed: 03/13/18 15:30> - Discharge Dispostion Decision to Admit order: No <Ramon Rooney - Last Filed: 03/13/18 16:50> Diagnosis at time of Disposition: Threatened affecting intrauterine - Discharge Dispostion Disposition: HOME Condition at time of disposition: Stable - Referrals - Patient Instructions Printed Discharge Instructions: DI for Threatened Additional Instructions: Bedrest is recommended See RFID STRATEGIST doctor as soon as possible, ideally tomorrow as scheduled.. Return to ER if pain worsens or bleeding becomes more severe. Good nutrition and plenty of fluids.
== END 2018-03-13 16:55 | disposition home or self-care (01) ==
LOC: FER 13:58
DX: O26.891 Other specified pregnancy related conditions, first trimester (principal); Z3A.01 Less than 8 weeks gestation of pregnancy; O20.0 Threatened abortion
CPT/HCPCS: 76801-TC; 76817-TC; 81003; 81015; 84703; 99281-25

== ENCOUNTER 2018-04-25 11:20 | Emergency (ER) | payer OTHER ==
--- NOTE | 2018-04-25 11:35 | PDOC ---
History of Present Illness - General Chief Complaint: Pain Stated Complaint: ABD PAIN (12 WKS ) Time Seen by Provider: 04/25/18 11:34 Past History - Past Medical History Allergies/Adverse Reactions: Allergies Allergy/AdvReac Type Severity Reaction Status Date / Time No Known Drug Allergies Allergy Verified 04/25/18 11:31 Home Medications: Ambulatory Orders NK [No Known Home Medication] 02/18/18 Anemia: No Asthma: No Cancer: No Cardiac Disorders: No CVA: No COPD: No CHF: No DVT: No Dementia: No Diabetes: No GI Disorders: Yes (hernia) Disorders: No HTN: No Hypercholesterolemia: No Liver Disease: No Seizures: No Thyroid Disease: No - Surgical History Abdominal Surgery: No Appendectomy: No Cardiac Surgery: No Cholecystectomy: No Lung Surgery: No Neurologic Surgery: No Orthopedic Surgery: Yes (ARTHOSCOPY LEFT KNEE 2006) - Reproductive History Ectopic : No Therapeutic (s) & number: Yes (2) - Immunization History Immunization Up to Date: Yes - Suicide/Smoking/Psychosocial Hx Smoking History: Never smoked Have you smoked in the past 12 months: No Number of Cigarettes Smoked Daily: 0.5 Information on smoking cessation initiated: No 'Breaking Loose' booklet given: 06/25/15 Hx Alcohol Use: No Drug/Substance Use Hx: No Substance Use Type: Alcohol Hx Substance Use Treatment: No *Physical Exam - Vital Signs Last Vital Signs Temp Pulse Resp BP Pulse Ox 98.6 F 54 L 18 147/79 100 04/25/18 11:31 04/25/18 11:31 04/25/18 11:31 04/25/18 11:31 04/25/18 11:31
[2018-04-25 11:42] VITALS: TEMP 98.6; BMI 39.7
[2018-04-25] MEDS ORDERED: IBUPROFEN 800 MG/8 ML IJ IVPB ONE ×2 (11:55→12:03)
[2018-04-25] MEDS ORDERED: SODIUM CHLORIDE 1,000 ML IV STA (12:03)
--- NOTE | 2018-04-25 12:16 | PDOC ---
History of Present Illness - General Chief Complaint: Pain Stated Complaint: ABD PAIN (12 WKS ) Time Seen by Provider: 04/25/18 11:34 History Source: Patient Exam Limitations: No Limitations - History of Present Illness Initial Comments: CHIEF COMPLAINT: 37 y/o afebrile female, A1, approximately 12 week female with LMP of 01/29/18 c/o vaginal bleeding and lower abdominal pain. HISTORY OF PRESENT ILLNESS: The patient states she's been having vaginal bleeding her entire and has been told she is actively miscarrying. She saw her [employer] CHAIR, Dr. Briggs in the office today who prescribed her pills to put into her vagina to complete the miscarriage. The patient was in too much pain after her office visit so she came here. She admits she's had an ultrasound confirming that the is not viable. She denies fever, chills, n/v/d, CP, SOB, back pain, hematuria, dysuria, passage of clots. F[employer] CHAIR is Dr. Alicea Vital signs on arrival are notable for HR of 54bpm REVIEW OF SYSTEMS: GENERAL/CONSTITUTIONAL: No fever/chills. No weakness. No weight change. HEAD, EYES, EARS, NOSE AND THROAT: No change in vision. No ear pain or discharge. No sore throat. CARDIOVASCULAR: No chest pain or shortness of breath. RESPIRATORY: No cough, wheezing, or hemoptysis. GASTROINTESTINAL: +lower abdominal pain and vaginal bleeding. No nausea, vomiting, diarrhea, constipation. GENITOURINARY: No dysuria, frequency, or change in urination. MUSCULOSKELETAL: No joint or muscle swelling or pain. No neck or back pain. SKIN: No rash or easy bruising. NEUROLOGIC: No headache, vertigo, loss of consciousness, or loss of sensation. PHYSICAL EXAM: GENERAL: The patient is awake, alert, and fully oriented, in pain. HEAD: Normal with no signs of trauma. ABDOMEN: Soft, non-distended, obese with TTP of lower abdomen. VAGINAL: Significant blood in vaginal canal. Os appears open. +CMT. No adnexal tenderness. EXTREMITIES: Normal range of motion, no edema. NEUROLOGICAL: Normal speech, normal gait. CN II-XII grossly intact. SKIN: Warm, dry, normal turgor, no rashes or lesions noted. Past History - Past Medical History Allergies/Adverse Reactions: Allergies Allergy/AdvReac Type Severity Reaction Status Date / Time No Known Drug Allergies Allergy Verified 04/25/18 11:31 Home Medications: Ambulatory Orders NK [No Known Home Medication] 02/18/18 Anemia: No Asthma: No Cancer: No Cardiac Disorders: No CVA: No COPD: No CHF: No DVT: No Dementia: No Diabetes: No GI Disorders: Yes (hernia) Disorders: No HTN: No Hypercholesterolemia: No Liver Disease: No Seizures: No Thyroid Disease: No - Surgical History Abdominal Surgery: No Appendectomy: No Cardiac Surgery: No Cholecystectomy: No Lung Surgery: No Neurologic Surgery: No Orthopedic Surgery: Yes (ARTHOSCOPY LEFT KNEE 2006) - Reproductive History Ectopic : No Therapeutic (s) & number: Yes (2) - Immunization History Immunization Up to Date: Yes - Suicide/Smoking/Psychosocial Hx Smoking History: Never smoked Have you smoked in the past 12 months: No Number of Cigarettes Smoked Daily: 0.5 Information on smoking cessation initiated: No 'Breaking Loose' booklet given: 06/25/15 Hx Alcohol Use: No Drug/Substance Use Hx: No Substance Use Type: Alcohol Hx Substance Use Treatment: No *Physical Exam - Vital Signs Last Vital Signs Temp Pulse Resp BP Pulse Ox 98.6 F 54 L 18 147/79 100 04/25/18 11:31 04/25/18 11:31 04/25/18 11:31 04/25/18 11:31 04/25/18 11:31 ED Treatment Course - LABORATORY CBC & Chemistry Diagram: 04/25/18 12:00 04/25/18 12:00 - RADIOLOGY Radiology Studies Ordered: Category Date Time Status TRANSVAGINAL US PREG [US] Stat Ultrasound 04/25/18 12:03 Ordered Medical Decision Making - Medical Decision Making A/P: 37 y/o female actively miscarrying at 12 weeks . Plan is as follows: 1. Labs 2. UA/culture 3. Ultrasound 4. IV fluids 5. IV caldolor Ultrasound IMPRESSION: No cardiac activity. Findings suggestive of demise. A+ blood type Patient given all of her results. She states she feels much better. Will discharge to home with instructions to take vaginal suppositories and ibuprofen as prescribed by Dr. Alicea and f/u with her scheduled outpatient ultrasound on Sunday, 04/29. Patient instructed to return to the ER with any worsening or concerning symptoms. The patient verbalizes understanding of all instructions, has no further questions and is awaiting discharge. *DC/Admit/Observation/Transfer Diagnosis at time of Disposition: Miscarriage, demise - Discharge Dispostion Disposition: HOME Condition at time of disposition: Improved - Referrals Referrals: Jessica Naylor MD [Primary Care Provider] - Herber Alicea MD [Staff Physician] - - Patient Instructions Printed Discharge Instructions: DI for Miscarriage Additional Instructions: Discharge Instructions: -Your ultrasound shows no heart activity and indicates active miscarriage. -please use vaginal suppositories and ibuprofen at home as prescribed by Dr. Alicea -Please keep appointment for follow up ultrasound scheduled for 04/29/18. -Return to the ER with any worsening or concerning symptoms - Post Discharge Activity
[2018-04-25 12:18] LABS: BASO % 0.5 % (0-2.0); EOS % 0.4 % (0-4.5); HEMATOCRIT 38.9 % (32.4-45.2); LYMPH % 14.6 % (8-40); MCH 31.3 pg (25.7-33.7); MCHC 33.4 g/dl (32.0-36.0); MEAN CELL VOLUME 93.7 fl (80-96); MEAN PLT VOLUME 9.5 fl (7.5-11.1); MONO % 5.8 % (3.8-10.2); NEUT % 78.7 % (42.8-82.8); PLATELET COUNT 171 K/MM3 (134-434); RBC 4.15 M/mm3 (3.60-5.2); RDW 13.4 % (11.6-15.6); WHITE BLOOD COUNT 8.4 K/mm3 (4.0-10.0)
[2018-04-25 13:02] LABS: ALBUMIN 3.9 g/dl (3.4-5.0); ALK PHOS 92 U/L (45-117); ANION GAP 5 (8-16); BILIRUBIN,TOTAL 0.5 mg/dL (0.2-1.0); BLOOD UREA NITROGEN 8 mg/dL (7-18); CALCIUM 9.1 mg/dL (8.5-10.1); CHLORIDE 104 mmol/L (98-107); CO2 29 mmol/L (21-32); CREATININE 0.7 mg/dL (0.55-1.02); GLUCOSE,RANDOM 106 mg/dL (74-106); POTASSIUM 4.4 mmol/L (3.5-5.1); SGOT/AST 35 U/L (15-37); SGPT/ALT 54 U/L (12-78); SODIUM 138 mmol/L (136-145); TOT PROT 7.5 g/dl (6.4-8.2)
[2018-04-25 13:44] LABS: URINE APPEARANCE CLEAR; URINE BILIRUBIN NEGATIVE (<2.0 mg/dL); URINE COLOR YELLOW; URINE GLUCOSE (UA) NEGATIVE (NEGATIVE); URINE KETONE NEGATIVE (NEGATIVE); URINE LEUK ESTERASE NEGATIVE (NEGATIVE); URINE NITRITE NEGATIVE (NEGATIVE); URINE PROTEIN NEGATIVE (NEGATIVE); URINE UROBILINOGEN NEGATIVE mg/dL (0.2-1.0)
[2018-04-25 13:47] LABS: EPI CELLS RARE /HPF (FEW); URINE MUCUS FEW
[2018-04-25 14:33] VITALS: BP 115/54; PULSE 56
== END 2018-04-25 14:41 | disposition home or self-care (01) ==
LOC: JER 11:20
PROC: 3E0337Z Introduction of Electrolytic and Water Balance Substance into Peripheral Vein, Percutaneous Approach (ICD-10-PCS; principal; 2018-04-25)
PROC: 3E0333Z Introduction of Anti-inflammatory into Peripheral Vein, Percutaneous Approach (ICD-10-PCS; 2018-04-25)
DX: O26.891 Other specified pregnancy related conditions, first trimester (principal); O02.1 Missed abortion; Z3A.12 12 weeks gestation of pregnancy
CPT/HCPCS: 36415; 76817-TC; 80053; 81003; 81015; 84702; 85025; 86850; 86900; 86901; 99283-25; J7030

== ENCOUNTER 2021-01-26 21:34 | Inpatient (IN) | payer OTHER ==
[2021-01-26 22:00] VITALS: BMI 35.5
[2021-01-26] MEDS ORDERED: morphine CARPU-JECT 4 MG/1 ML DISP.SYRIN IVPUSH ONE (22:24)
[2021-01-26] MEDS ORDERED: SODIUM CHLORIDE 1,000 ML IV ONE (22:24)
[2021-01-26] MEDS ORDERED: morphine SULFATE 4 MG/ML VIAL ONE ×2 (22:26→23:55)
[2021-01-26 22:52] LABS: EPITHELIAL CELLS FEW /hpf
[2021-01-26 22:55] LABS: HEMOGLOBIN 13.2 GM/dl (10.7-15.3); MEAN PLT VOLUME 9.9 fl (7.5-11.1)
[2021-01-26 23:00] LABS: HEMATOCRIT 40.7 % (32.4-45.2); MCH 30.8 pg (25.7-33.7); MCHC 32.4 g/dl (32.0-36.0); PLATELET COUNT 143 K/MM3 (134-434); RBC 4.29 M/mm3 (3.60-5.2); RDW 13.2 % (11.6-15.6); WHITE BLOOD COUNT 6.2 K/mm3 (4.0-10.8)
[2021-01-26 23:06] LABS: ALBUMIN 3.7 g/dl (3.4-5.0); BILIRUBIN,TOTAL 1.5 mg/dl (0.2-1); CALCIUM 8.8 mg/dl (8.5-10); CREATININE 0.8 mg/dl (0.55-1.3); TOT PROT 6.6 g/dl (6.4-8.2)
[2021-01-26 23:17] LABS: PLATELET ESTIMATE ADEQUATE
[2021-01-27] MEDS ORDERED: morphine CARPU-JECT 4 MG/1 ML DISP.SYRIN IVPUSH ONE (00:04)
[2021-01-27] MEDS ORDERED: morphine CARPU-JECT 2 MG/1 ML DISP.SYRIN IVPUSH PRN (01:58)
[2021-01-27] MEDS ORDERED: SODIUM CHLORIDE 1,000 ML IV SCH ×2 (02:00→16:51)
[2021-01-27] MEDS ORDERED: ACETAMINOPHEN 1000 MG/100 ML VIAL (NON FORMULARY) IVPB PRN ×2 (02:00→16:51)
[2021-01-27] MEDS ORDERED: morphine SULFATE 4 MG/ML VIAL ONE (03:05)
[2021-01-27] MEDS ORDERED: ONDANSETRON 4 MG/2 ML VIAL ONE (07:52)
[2021-01-27 07:56] LABS: INR 1.24 (0.82-1.09); PROTHROMBIN TIME (PATIENT) 13.7 SEC (10.2-13.0)
[2021-01-27] MEDS ORDERED: ONDANSETRON 4 MG/2 ML VIAL IVPB ONE (08:04)
[2021-01-27] MEDS ORDERED: ONDANSETRON 4 MG/2 ML VIAL IVPUSH PRN ×2 (10:23→16:51)
[2021-01-27] MEDS ORDERED: MORPHINE SULFATE 2 MG/ML VIAL IVPUSH PRN (10:31)
[2021-01-27] MEDS ORDERED: BUPIVACAINE HCL 100 ML ONE (13:06)
[2021-01-27] MEDS ORDERED: ceFAZolin SODIUM 1 GM VIAL ONE (14:10)
[2021-01-27] MEDS ORDERED: LIDOCAINE HCL 2% JELLY (5 ML/TUBE) ONE (14:10)
[2021-01-27] MEDS ORDERED: SUCCINYLCHOLINE CHLORIDE 200 MG/10 ML SYRINGE ONE (14:13)
[2021-01-27] MEDS ORDERED: ROCURONIUM BROMIDE 50 MG/5 ML SYRINGE ONE (14:13)
[2021-01-27] MEDS ORDERED: EPHEDRINE SULFATE/0.9% NACL/PF 50 MG/10 ML SYRINGE NR ONE (14:13)
[2021-01-27] MEDS ORDERED: PROPOFOL 20 ML ONE ×2 (14:14)
[2021-01-27] MEDS ORDERED: ceFAZolin SODIUM 1 GM VIAL IVPB ONE (14:30)
[2021-01-27] MEDS ORDERED: ACETAMINOPHEN INJECTION 100 ML IVPB ONE (14:31)
[2021-01-27] MEDS ORDERED: BUPIVACAINE HCL/PF 0.5% (5 MG/ML) 30 ML VIAL IJ ONE ×2 (15:40)
[2021-01-27] MEDS ORDERED: NEOSTIGMINE METHYLSULFATE 0.5 MG/ML - 10 ML MDV ONE (15:55)
[2021-01-27] MEDS ORDERED: GLYCOPYRROLATE 0.2 MG/1 ML VIAL ONE (15:55)
[2021-01-27] MEDS: SODIUM CHLORIDE 1,000 ML IV SCH (17:02)
[2021-01-27] MEDS: MORPHINE SULFATE 2 MG/ML VIAL IVPUSH PRN (21:39)
[2021-01-28] MEDS: SODIUM CHLORIDE 1,000 ML IV SCH ×2 (01:44→14:15)
[2021-01-28] MEDS: MORPHINE SULFATE 2 MG/ML VIAL IVPUSH PRN ×2 (02:06→06:06)
[2021-01-28 07:44] LABS: BASO % 0.2 % (0-2.0); EOS % 0.7 % (0-4.5); HEMATOCRIT 33.4 % (32.4-45.2); HEMOGLOBIN 11.2 GM/dL (10.7-15.3); LYMPH % 23.2 % (8-40); MCH 32.4 pg (25.7-33.7); MCHC 33.6 g/dl (32.0-36.0); MEAN CELL VOLUME 96.4 fl (80-96); MEAN PLT VOLUME 10.3 fl (7.5-11.1); MONO % 10.3 % (3.8-10.2); NEUT % 65.6 % (42.8-82.8); PLATELET COUNT 124 K/MM3 (134-434); RBC 3.47 M/mm3 (3.60-5.2); WHITE BLOOD COUNT 6.4 K/mm3 (4.0-10.0)
[2021-01-28 08:08] LABS: BLOOD UREA NITROGEN 12.8 mg/dL (7-18); CALCIUM 7.8 mg/dL (8.5-10.1); MAGNESIUM 1.6 mg/dL (1.8-2.4)
[2021-01-28 08:09] LABS: ALBUMIN 2.8 g/dl (3.4-5.0)
[2021-01-28 08:11] LABS: CREATININE 0.7 mg/dL (0.55-1.3); PHOSPHOROUS 3.1 mg/dL (2.5-4.9)
[2021-01-28 08:13] LABS: BILIRUBIN,TOTAL 1.4 mg/dL (0.2-1); TOT PROT 5.4 g/dl (6.4-8.2)
[2021-01-28] MEDS: ACETAMINOPHEN 1000 MG/100 ML VIAL (NON FORMULARY) IVPB SCH ×3 (08:45→20:24)
[2021-01-28] MEDS ORDERED: MAGNESIUM SULF 50% (8.12 MEQ/2 ML-1 GM VIAL) IVPB ONE (09:19)
[2021-01-28] MEDS: KETOROLAC TROMETHAMINE 15 MG/ML VIAL IVPUSH PRN (09:22)
[2021-01-28] MEDS: ENOXAPARIN NA (PORCINE) 40 MG/0.4 ML DISP.SYRIN SQ SCH (09:22)
[2021-01-28] MEDS ORDERED: oxyCODONE HCL 5 MG TABLET PO PRN (14:47)
[2021-01-29] MEDS: KETOROLAC TROMETHAMINE 15 MG/ML VIAL IVPUSH PRN (01:36)
[2021-01-29 07:57] LABS: BASO % 0.5 % (0-2.0); EOS % 2.2 % (0-4.5); LYMPH % 44.4 % (8-40); MCH 31.8 pg (25.7-33.7); MCHC 33.3 g/dl (32.0-36.0); MEAN CELL VOLUME 95.5 fl (80-96); MONO % 12.1 % (3.8-10.2); NEUT % 40.8 % (42.8-82.8); PLATELET COUNT 123 K/MM3 (134-434); RBC 3.46 M/mm3 (3.60-5.2); RDW 13.9 % (11.6-15.6); WHITE BLOOD COUNT 4.1 K/mm3 (4.0-10.0)
[2021-01-29 08:20] LABS: ALBUMIN 2.8 g/dl (3.4-5.0); BLOOD UREA NITROGEN 9.2 mg/dL (7-18); CALCIUM 8.3 mg/dL (8.5-10.1); MAGNESIUM 1.9 mg/dL (1.8-2.4)
[2021-01-29 08:24] LABS: CREATININE 0.7 mg/dL (0.55-1.3); PHOSPHOROUS 2.7 mg/dL (2.5-4.9)
[2021-01-29 08:25] LABS: BILIRUBIN,TOTAL 1.1 mg/dL (0.2-1); TOT PROT 5.4 g/dl (6.4-8.2)
[2021-01-29] MEDS: ENOXAPARIN NA (PORCINE) 40 MG/0.4 ML DISP.SYRIN SQ SCH (09:33)
[2021-01-29] MEDS: ACETAMINOPHEN 1000 MG/100 ML VIAL (NON FORMULARY) IVPB PRN ×2 (13:36→22:10)
[2021-01-30] MEDS: ENOXAPARIN NA (PORCINE) 40 MG/0.4 ML DISP.SYRIN SQ SCH (09:25)
[2021-01-30] MEDS: ACETAMINOPHEN 1000 MG/100 ML VIAL (NON FORMULARY) IVPB PRN (09:40)
[2021-01-30] MEDS: DOCUSATE SODIUM 100 MG CAPSULE (FP) PO SCH ×2 (12:37→22:08)
[2021-01-30] MEDS: ACETAMINOPHEN 325 MG TABLET (FP) PO PRN (22:53)
[2021-01-31 08:23] LABS: BASO % 0.5 % (0-2.0); EOS % 2.5 % (0-4.5); HEMATOCRIT 33.4 % (32.4-45.2); HEMOGLOBIN 11.3 GM/dL (10.7-15.3); LYMPH % 46.8 % (8-40); MCH 32.1 pg (25.7-33.7); MCHC 33.7 g/dl (32.0-36.0); MEAN CELL VOLUME 95.3 fl (80-96); MONO % 11.4 % (3.8-10.2); NEUT % 38.8 % (42.8-82.8); PLATELET COUNT 130 K/MM3 (134-434); RBC 3.51 M/mm3 (3.60-5.2); RDW 13.8 % (11.6-15.6); WHITE BLOOD COUNT 3.9 K/mm3 (4.0-10.0)
[2021-01-31] MEDS: ENOXAPARIN NA (PORCINE) 40 MG/0.4 ML DISP.SYRIN SQ SCH (09:04)
[2021-01-31] MEDS: DOCUSATE SODIUM 100 MG CAPSULE (FP) PO SCH (09:04)
[2021-01-31] MEDS: ACETAMINOPHEN 325 MG TABLET (FP) PO PRN (13:16)
[2021-01-31 14:01] VITALS: BP 123/64; PULSE 47; TEMP 98.5
[2021-02-04] MEDS ORDERED: NAPROXEN 500 MG TABLET PO SCH (22:00)
== END 2021-01-31 16:31 | disposition home or self-care (01) | DRG 227 ==
LOC: FER 21:34 → J7W 01-27 09:41
PROVIDERS: ADMIT Surgery; ATTEND Internal Medicine
PROC: 0DN80ZZ Release Small Intestine, Open Approach (ICD-10-PCS; 2021-01-27)
PROC: 0WQF0ZZ Repair Abdominal Wall, Open Approach (ICD-10-PCS; principal; 2021-01-27 15:15)
DX: K42.0 Umbilical hernia with obstruction, without gangrene (principal); K56.699 Other intestinal obstruction unspecified as to partial versus complete obstruction; M54.5 Low back pain; E66.9 Obesity, unspecified; Z68.35 Body mass index [BMI] 35.0-35.9, adult; K43.6 Other and unspecified ventral hernia with obstruction, without gangrene
CPT/HCPCS: 36415; 71045-TC-FY; 74177-TC; 80048; 80053; 81003; 81015; 81025; 83605; 83735; 84100; 85025; 85610; 86850; 86900; 86901; 88302-TC; 93005; 94760; 99285-25; C9803; J0131; Q9967; U0003; U0005

== ENCOUNTER 2021-09-06 14:09 | Emergency (ER) | payer OTHER ==
[2021-09-06 14:37] VITALS: BP 131/81; PULSE 89; TEMP 98.1; BMI 35.5
== END 2021-09-06 15:40 | disposition left against medical advice (07) ==
LOC: JER 14:09
DX: R09.81 Nasal congestion (principal); R51.9 Headache, unspecified; J02.9 Acute pharyngitis, unspecified
CPT/HCPCS: 99281-25

== ENCOUNTER 2021-09-07 10:40 | Emergency (ER) | payer OTHER ==
[2021-09-07] MEDS ORDERED: IBUPROFEN 600 MG TABLET (FP) PO ONE ×2 (11:02→11:11)
[2021-09-07] MEDS ORDERED: PSEUDOEPHEDRINE HCL 60 MG TABLET PO ONE (11:04)
[2021-09-07] MEDS ORDERED: ACETAMINOPHEN 325 MG TABLET (FP) PO ONE (11:05)
[2021-09-07 11:06] VITALS: BP 116/75; PULSE 56; TEMP 99.1; BMI 34.9
[2021-09-07] MEDS ORDERED: ACETAMINOPHEN 325 MG TABLET (FP) ONE (11:11)
[2021-09-07] MEDS ORDERED: PSEUDOEPHEDRINE HCL 30 MG TABLET ONE (11:11)
== END 2021-09-07 16:43 | disposition home or self-care (01) ==
LOC: FER 10:40
DX: R05.1 Acute cough (principal); R09.81 Nasal congestion; J02.9 Acute pharyngitis, unspecified; B97.4 Respiratory syncytial virus as the cause of diseases classified elsewhere; Z11.52 Encounter for screening for COVID-19
CPT/HCPCS: 87651; 87804; 87807; 99283-25; C9803; U0003; U0005

== ENCOUNTER 2021-09-10 10:45 | Inpatient (IN) | payer OTHER ==
[2021-09-10] MEDS ORDERED: KETOROLAC TROMETHAMINE 30 MG/1 ML VIAL IVPUSH ONE (11:17)
[2021-09-10] MEDS ORDERED: ONDANSETRON 4 MG/2 ML VIAL IVPB ONE (11:17)
[2021-09-10] MEDS ORDERED: SODIUM CHLORIDE 1,000 ML IV STA (11:17)
[2021-09-10] MEDS ORDERED: ONDANSETRON 4 MG/2 ML VIAL ONE (11:24)
[2021-09-10] MEDS ORDERED: KETOROLAC TROMETHAMINE 15 MG/ML VIAL ONE (11:24)
[2021-09-10 12:04] LABS: ALBUMIN 3.7 g/dl (3.4-5.0); BILIRUBIN,TOTAL 1.7 mg/dl (0.2-1); CALCIUM 9.1 mg/dl (8.5-10); CREATININE 0.8 mg/dl (0.55-1.3); TOT PROT 7.3 g/dl (6.4-8.2)
[2021-09-10] MEDS ORDERED: ACETAMINOPHEN 1000 MG/100 ML VIAL IVPB ONE (12:38)
[2021-09-10] MEDS ORDERED: ACETAMINOPHEN INJECTION 100 ML IVPB ONE (12:40)
[2021-09-10 12:57] LABS: HEMATOCRIT 40.9 % (32.4-45.2); HEMOGLOBIN 13.4 GM/dL (10.7-15.3); MCHC 32.6 g/dl (32.0-36.0); MEAN CELL VOLUME 94.9 fl (80-96); MEAN PLT VOLUME 10.4 fl (7.5-11.1); PLATELET COUNT 151 10^3/uL (134-434); RBC 4.31 M/mm3 (3.60-5.2); RDW 13.7 % (11.6-15.6); WHITE BLOOD COUNT 26.7 K/mm3 (4.0-10.0)
[2021-09-10 13:40] LABS: HCG,QUALITATIVE URINE Negative
[2021-09-10 13:46] LABS: EPITHELIAL CELLS FEW /hpf; URINE MUCUS 2+
[2021-09-10] MEDS ORDERED: guaiFENesin/D-METHORPHAN HB 10 ML UNIT-DOSE CUPS PO ONE (13:59)
[2021-09-10] MEDS ORDERED: guaiFENesin/D-METHORPHAN HB 10 ML UNIT-DOSE CUPS ONE (14:00)
[2021-09-10] MEDS ORDERED: VANCOMYCIN 1 GM in D5W (PRE-DOCKED) 1,000 MG/250 ML IVPB ONE (14:03)
[2021-09-10] MEDS ORDERED: PIPERACILLIN/TAZOBACTAM 4.5 GM VIAL IVPB ONE (14:06)
[2021-09-10] MEDS ORDERED: PIPERACILLIN/TAZOB 2.25 GM 2.25 GM in DEXTROSE 5%-WATER - 50 ML IVPB SCH (14:15)
[2021-09-10 14:25] LABS: ANISOCYTOSIS 1+; MACROCYTOSIS 1+; PLATELET ESTIMATE DECREASED
[2021-09-10] MEDS ORDERED: VANCOMYCIN 1,000 MG VIAL (RESTRICTED TO ID ONLY) ONE (14:35)
[2021-09-10] MEDS ORDERED: BENZOCAINE/MENTHOL 1 EACH LOZENGE MM PRN (14:38)
[2021-09-10] MEDS ORDERED: SODIUM CHLORIDE 1,000 ML IV SCH (17:45)
[2021-09-10] MEDS ORDERED: PIPERACILLIN/TAZOB 3.375 GM 3.375 GM in DEXTROSE 5%-WATER - 50 ML IVPB SCH (18:00)
[2021-09-10 18:31] VITALS: BMI 34.3
[2021-09-10] MEDS: ALBUTEROL SO4 2.5/IPRATROPIUM 0.5 INH SOL 3 ML VIAL.NEB. NEB SCH ×2 (18:35→21:45)
[2021-09-10] MEDS: ACETAMINOPHEN 325 MG TABLET (FP) PO PRN (18:37)
[2021-09-10] MEDS ORDERED: ONDANSETRON 4 MG/2 ML VIAL IVPUSH PRN (18:39)
[2021-09-10] MEDS ORDERED: PIPERACILLIN/TAZOBACTAM 3.375 GM VIAL IVPB ONE (21:26)
[2021-09-10] MEDS ORDERED: DEXTROSE 5%-WATER - 50 ML IVPB ONE (21:27)
[2021-09-10] MEDS: PIPERACILLIN/TAZOB 3.375 GM 3.375 GM in DEXTROSE 5%-WATER - 50 ML IVPB SCH (21:46)
[2021-09-10] MEDS: ACETAMINOPHEN 1000 MG/100 ML VIAL IVPB PRN (23:43)
[2021-09-11] MEDS ORDERED: DEXTROSE 5%-WATER - 50 ML IVPB ONE ×3 (06:07→21:06)
[2021-09-11] MEDS ORDERED: PIPERACILLIN/TAZOBACTAM 3.375 GM VIAL IVPB ONE ×3 (06:07→21:05)
[2021-09-11] MEDS: PIPERACILLIN/TAZOB 3.375 GM 3.375 GM in DEXTROSE 5%-WATER - 50 ML IVPB SCH ×3 (06:21→21:31)
[2021-09-11] MEDS: ACETAMINOPHEN 1000 MG/100 ML VIAL IVPB PRN (07:03)
[2021-09-11 09:08] LABS: ALBUMIN 2.7 g/dl (3.4-5.0); BILIRUBIN,TOTAL 1.1 mg/dl (0.2-1); CALCIUM 7.9 mg/dl (8.5-10); CREATININE 0.7 mg/dl (0.55-1.3); MAGNESIUM 1.2 mg/dL (1.8-2.4); TOT PROT 5.7 g/dl (6.4-8.2)
[2021-09-11] MEDS ORDERED: POTASSIUM CHLORIDE TABS 20 MEQ TABLET.ER (FP) PO ONE (09:30)
[2021-09-11] MEDS ORDERED: MAGNESIUM OXIDE 400 MG TABLET (FP) PO ONE (09:45)
[2021-09-11] MEDS ORDERED: PANTOPRAZOLE SODIUM 40 MG VIAL IVPUSH SCH (10:00)
[2021-09-11] MEDS ORDERED: PANTOPRAZOLE SODIUM 40 MG in SODIUM CHLORIDE 100 ML IVPB SCH (10:00)
[2021-09-11 10:01] LABS: HEMOGLOBIN 12.1 GM/dL (10.7-15.3); MCH 30.9 pg (25.7-33.7); MCHC 32.8 g/dl (32.0-36.0); MEAN CELL VOLUME 94.1 fl (80-96); MEAN PLT VOLUME 10.5 fl (7.5-11.1); PLATELET COUNT 127 10^3/uL (134-434); RBC 3.93 M/mm3 (3.60-5.2); RDW 14.1 % (11.6-15.6); WHITE BLOOD COUNT 27.1 K/mm3 (4.0-10.0)
[2021-09-11] MEDS: ENOXAPARIN NA (PORCINE) 40 MG/0.4 ML DISP.SYRIN SQ SCH (10:17)
[2021-09-11] MEDS: ALBUTEROL SO4 2.5/IPRATROPIUM 0.5 INH SOL 3 ML VIAL.NEB. NEB SCH ×4 (10:17→21:31)
[2021-09-11] MEDS: methylPREDNISolone NA SUCC 40 MG/1 ML VIAL IVPUSH SCH ×3 (10:17→21:31)
[2021-09-11] MEDS: PANTOPRAZOLE 40 MG TABLET PO SCH (10:18)
[2021-09-11] MEDS: MULTIVITAMINS (DAILY MVI) TABLET (FP) PO SCH (10:18)
[2021-09-11 10:54] LABS: ANISOCYTOSIS 0; MACROCYTOSIS 0; PLATELET ESTIMATE NORMAL
[2021-09-11] MEDS: SODIUM CHLORIDE 1,000 ML IV SCH (11:00)
[2021-09-11] MEDS: VANCOMYCIN 1 GM in D5W (PRE-DOCKED) 1,000 MG/250 ML IVPB SCH (12:30)
[2021-09-11] MEDS: MAGNESIUM OXIDE 400 MG TABLET (FP) PO SCH (21:31)
[2021-09-12] MEDS: VANCOMYCIN 1 GM in D5W (PRE-DOCKED) 1,000 MG/250 ML IVPB SCH ×3 (00:48→22:39)
[2021-09-12] MEDS: methylPREDNISolone NA SUCC 40 MG/1 ML VIAL IVPUSH SCH ×4 (02:07→22:04)
[2021-09-12] MEDS ORDERED: DEXTROSE 5%-WATER - 50 ML IVPB ONE ×3 (06:10→21:30)
[2021-09-12] MEDS ORDERED: PIPERACILLIN/TAZOBACTAM 3.375 GM VIAL IVPB ONE ×3 (06:10→21:29)
[2021-09-12] MEDS: PIPERACILLIN/TAZOB 3.375 GM 3.375 GM in DEXTROSE 5%-WATER - 50 ML IVPB SCH ×3 (06:17→22:04)
[2021-09-12] MEDS ORDERED: BENZOCAINE/MENTH/CETYLPYRD CL 1 EACH LOZENGE MM PRN (07:49)
[2021-09-12] MEDS: ALBUTEROL SO4 2.5/IPRATROPIUM 0.5 INH SOL 3 ML VIAL.NEB. NEB SCH ×4 (08:54→21:04)
[2021-09-12] MEDS: PANTOPRAZOLE 40 MG TABLET PO SCH (09:55)
[2021-09-12] MEDS: ENOXAPARIN NA (PORCINE) 40 MG/0.4 ML DISP.SYRIN SQ SCH (09:55)
[2021-09-12] MEDS: MAGNESIUM OXIDE 400 MG TABLET (FP) PO SCH (09:55)
[2021-09-12] MEDS: MULTIVITAMINS (DAILY MVI) TABLET (FP) PO SCH (09:56)
[2021-09-12] MEDS: ACETAMINOPHEN 325 MG TABLET (FP) PO PRN (09:57)
[2021-09-12] MEDS ORDERED: MAGNESIUM SULF 50% (8.12 MEQ/2 ML-1 GM VIAL) IVPB ONE (11:52)
[2021-09-12] MEDS ORDERED: MAGNESIUM SULFATE IN WATER 2 GM/50 ML IVPB IVPB ONE (12:00)
[2021-09-12] MEDS: POTASSIUM CHLORIDE TABS 20 MEQ TABLET.ER (FP) PO SCH ×2 (12:09→17:52)
[2021-09-12] MEDS: SODIUM CHLORIDE 1,000 ML IV SCH (12:12)
[2021-09-13] MEDS: methylPREDNISolone NA SUCC 40 MG/1 ML VIAL IVPUSH SCH ×2 (04:17→09:26)
[2021-09-13] MEDS ORDERED: DEXTROSE 5%-WATER - 50 ML IVPB ONE (06:10)
[2021-09-13] MEDS ORDERED: PIPERACILLIN/TAZOBACTAM 3.375 GM VIAL IVPB ONE (06:10)
[2021-09-13] MEDS: PIPERACILLIN/TAZOB 3.375 GM 3.375 GM in DEXTROSE 5%-WATER - 50 ML IVPB SCH (06:17)
[2021-09-13 08:28] LABS: ALBUMIN 2.8 g/dl (3.4-5.0); BILIRUBIN,TOTAL 0.4 mg/dl (0.2-1); CALCIUM 9.1 mg/dl (8.5-10); CREATININE 0.7 mg/dl (0.55-1.3); MAGNESIUM 1.6 mg/dL (1.8-2.4)
[2021-09-13 09:24] LABS: HEMATOCRIT 35.5 % (32.4-45.2); HEMOGLOBIN 11.7 GM/dL (10.7-15.3); MCHC 32.9 g/dl (32.0-36.0); MEAN CELL VOLUME 94.4 fl (80-96); MEAN PLT VOLUME 10.5 fl (7.5-11.1); PLATELET COUNT 126 10^3/uL (134-434); RBC 3.76 M/mm3 (3.60-5.2); RDW 14.2 % (11.6-15.6); WHITE BLOOD COUNT 27.2 K/mm3 (4.0-10.0)
[2021-09-13] MEDS: ALBUTEROL SO4 2.5/IPRATROPIUM 0.5 INH SOL 3 ML VIAL.NEB. NEB SCH ×2 (09:26→12:05)
[2021-09-13] MEDS: ENOXAPARIN NA (PORCINE) 40 MG/0.4 ML DISP.SYRIN SQ SCH (09:27)
[2021-09-13] MEDS: PANTOPRAZOLE 40 MG TABLET PO SCH (09:27)
[2021-09-13] MEDS: MULTIVITAMINS (DAILY MVI) TABLET (FP) PO SCH (09:28)
[2021-09-13] MEDS: VANCOMYCIN 1 GM in D5W (PRE-DOCKED) 1,000 MG/250 ML IVPB SCH (10:54)
[2021-09-13 11:14] VITALS: BP 125/66; PULSE 53; TEMP 98.7
[2021-09-13] MEDS ORDERED: methylPREDNISolone NA SUCC 40 MG/1 ML VIAL IVPUSH SCH (11:30)
[2021-09-13] MEDS ORDERED: MAGNESIUM SULF 50% (8.12 MEQ/2 ML-1 GM VIAL) IVPB ONE (12:03)
[2021-09-13 12:40] LABS: ANISOCYTOSIS 1+; MACROCYTOSIS 0; PLATELET ESTIMATE DECREASED
== END 2021-09-13 16:40 | disposition home or self-care (01) | DRG 720 ==
LOC: FER 10:45 → FM/S 15:47
PROVIDERS: ADMIT Internal Medicine; ATTEND Nurse Practitioner Acute Care
DX: A41.9 Sepsis, unspecified organism (principal); J18.9 Pneumonia, unspecified organism; R04.2 Hemoptysis; D72.829 Elevated white blood cell count, unspecified; E66.9 Obesity, unspecified; J21.0 Acute bronchiolitis due to respiratory syncytial virus; Z29.9 Encounter for prophylactic measures, unspecified; Z68.34 Body mass index [BMI] 34.0-34.9, adult; E87.6 Hypokalemia; E83.42 Hypomagnesemia
CPT/HCPCS: 36415; 71046-TC-FY; 71250-TC; 80053; 81003; 81015; 83036; 83605; 83735; 84703; 85025; 87040; 87070; 87086; 87205; 87651; 87804; 87807; 87899; 94640; 99283-25; 99285-25; C9803; J0131; U0003; U0005

== ENCOUNTER 2024-07-15 09:49 | Emergency (ER) | payer OTHER ==
[2024-07-15] MEDS ORDERED: METHOCARBAMOL 500 MG TABLET ONE (10:22)
[2024-07-15] MEDS ORDERED: KETOROLAC TROMETHAMINE 30 MG/1 ML VIAL ONE (10:23)
[2024-07-15] MEDS: KETOROLAC TROMETHAMINE 30 MG/1 ML VIAL IM ONE (10:28)
[2024-07-15] MEDS: METHOCARBAMOL 500 MG TABLET PO ONE (10:28)
[2024-07-15] MEDS: LIDOCAINE 5% TOPICAL PATCH TP ONE (10:29)
[2024-07-15 12:00] VITALS: BP 130/73; PULSE 68; RESP 20; BMI 33.3
[2024-07-15] MEDS ORDERED: LIDOCAINE 5% TOPICAL PATCH ONE (12:04)
[2024-07-15 12:18] VITALS: TEMP 97.3
[2024-07-15] MEDS ORDERED: LIDOCAINE PATCH REMOVAL MC SCH (22:00)
== END 2024-07-15 12:57 | disposition home or self-care (01) ==
LOC: FER 09:49
PROC: 3E0233Z Introduction of Anti-inflammatory into Muscle, Percutaneous Approach (ICD-10-PCS; principal; 2024-07-15)
DX: S39.012A Strain of muscle, fascia and tendon of lower back, initial encounter (principal); X58.XXXA Exposure to other specified factors, initial encounter
CPT/HCPCS: 96372; 99284-25

== ENCOUNTER 2024-08-01 16:31 | Emergency (ER) | payer OTHER ==
[2024-08-01 16:48] VITALS: BP 117/77; PULSE 53; RESP 20; TEMP 98.2; BMI 35.7
[2024-08-01] MEDS: IBUPROFEN 600 MG TABLET (FP) PO ONE (17:33)
[2024-08-01] MEDS ORDERED: IBUPROFEN 600 MG TABLET (FP) PO ONE ×2 (17:38)
== END 2024-08-01 18:01 | disposition home or self-care (01) ==
LOC: FER 16:31
PROC: 0XQNXZZ Repair Right Index Finger, External Approach (ICD-10-PCS; principal; 2024-08-01)
DX: S61.210A Laceration without foreign body of right index finger without damage to nail, initial encounter (principal); W25.XXXA Contact with sharp glass, initial encounter
CPT/HCPCS: 99283-25